=== PATIENT | male | born 1940 | race Caucasian/White ===

== ENCOUNTER 2016-11-09 15:19 | Emergency (ER) | payer MEDICARE, MEDICAID ==
[2014-09-24 12:51] VITALS: BMI 24.4
[~2016-11-09 15:19] MED LIST: ABILIFY2 MG PO; AUGMENTIN 875-11 TAB PO; CARDIZEM CD240 MG PO; DITROPAN X5 MG/BOTTL PO; DOXYCYCLINE HY100 M2 PO; FEXOFENADINE H180 MG PO; FORTEO PEN20 MCG; FORTEO PEN20 MCG SQ; IPRAT-ALBUT 0.5-3 ML UPD; KLONOPIN0.5 MG PO; LACTINEX C1 TAB.CHEW PO; MUCINEX600 MG PO; NEURONTIN 300300 MG; NEURONTIN 400400 MG PO; OYST-CAL-5001 TAB PO; PROTONIX40 MG PO; PULMICORT0.25 MG/1 INH; SENOKOT-S TABLE1 TAB PO; STERAPRED DS 1010 MG PO; SYNTHROID125 MCG PO; TRAZODONE HCL50 MG PO; ULTRACET TABLET1 TAB PO; VENTOLIN HFA18 GM; VENTOLIN HFA18 GM INH; WELLBUTRIN100 MG PO; ZOLOFT100 MG; ZOLOFT100 MG PO
== END 2016-11-09 21:16 | disposition home or self-care (01) ==
LOC: D.ER 15:19
DX: T67.5XXA Heat exhaustion, unspecified, initial encounter (principal); X58.XXXA Exposure to other specified factors, initial encounter; Y93.89 Activity, other specified; Y92.89 Other specified places as the place of occurrence of the external cause; J44.9 Chronic obstructive pulmonary disease, unspecified; R00.0 Tachycardia, unspecified

== ENCOUNTER 2017-05-29 09:41 | Inpatient (IN) | payer MEDICARE ==
[~2017-05-29] VITALS: Ht 182.9 cm; Wt 98.3 kg
[2017-05-29 10:29] LABS: BASOPHILS 0.2 % (0-2); EOSINOPHILS 2.9 % (0-7); HEMATOCRIT 45.5 % (42.0-54.0); HEMOGLOBIN 13.5 g/dL (13.5-17.5); IMMATURE GRANULOCYTES 0.4 % (0-5); LYMPHOCYTES 17.6 % (15-50); MCH 29.2 pg (26.0-34.0); MCHC 29.7 g/dL (31.0-37.0); MCV 98.5 fL (80.0-100.0); MEAN PLATELET VOLUME 11.2 fL (7.4-10.4); MONOCYTES 11.7 % (2-11); NEUTROPHILS 67.2 % (40-80); RBC 4.62 10x6/uL (4.20-6.10); WBC 5.6 10x3/uL (4.8-10.8)
[2017-05-29 10:44] LABS: PLATELET COUNT 125 10x3/uL (130-400)
[2017-05-29 11:00] LABS: ALBUMIN 3.3 g/dL (3.4-5.0); ANION GAP 6.7 mmol/L (8-16); BILIRUBIN - TOTAL 0.4 mg/dL (0.2-1.3); CALCIUM 8.9 mg/dL (8.5-10.1); CARBON DIOXIDE 36.6 mmol/L (21.0-32.0); CREATININE - SERUM 1.5 mg/dL (0.6-1.3); POTASSIUM - SERUM 4.3 mmol/L (3.5-5.1); PROTEIN - SERUM 7.4 g/dL (6.4-8.2)
[2017-05-29 11:08] LABS: TROPONIN-I 0.027 ng/mL (0.000-0.060)
[2017-05-29 11:28] LABS: APPEARANCE HAZY (CLEAR); BACTERIA FEW /hpf (NONE SEEN); BILIRUBIN NEGATIVE (NEGATIVE); COLOR YELLOW (YELLOW); EPITHELIAL CELLS 0-5 /hpf (0-5); GLUCOSE NEGATIVE (NEGATIVE); HYALINE CAST RARE /lpf (NONE SEEN); KETONE NEGATIVE (NEGATIVE); MUCUS <1+ /lpf (NONE SEEN); NITRITE NEGATIVE (NEGATIVE); PROTEIN 1+ mg/dL (NEGATIVE); RED CELLS - URINE OCC /hpf (0-5); UROBILINOGEN NORMAL (NORMAL); WHITE CELLS - URINE RARE /hpf (0-5)
[2017-05-29 16:56] VITALS: BP 111/91; BMI 30.4
[2017-05-29] MEDS ORDERED: CLARITIN 10 MG10 MG PO (17:24)
[2017-05-29] MEDS ORDERED: LINZESS145 MCG PO (17:25)
[2017-05-29] MEDS ORDERED: NEURONTIN600 MG PO (17:25)
[2017-05-29] MEDS ORDERED: NATURAL SENNA8.6 MG PO (17:26)
[2017-05-29] MEDS ORDERED: OXYBUTYNIN15 MG/BOTT PO (17:27)
[2017-05-29 21:01] VITALS: BP 145/93
[2017-05-30 06:07] LABS: BASOPHILS 0 % (0-2); EOSINOPHILS 0 % (0-7); HEMATOCRIT 46.6 % (42.0-54.0); HEMOGLOBIN 14.1 g/dL (13.5-17.5); IMMATURE GRANULOCYTES 0.2 % (0-5); LYMPHOCYTES 9.4 % (15-50); MCH 29.5 pg (26.0-34.0); MCHC 30.3 g/dL (31.0-37.0); MCV 97.5 fL (80.0-100.0); MEAN PLATELET VOLUME 11.8 fL (7.4-10.4); MONOCYTES 0.7 % (2-11); NEUTROPHILS 89.7 % (40-80); PLATELET COUNT 131 10x3/uL (130-400); RBC 4.78 10x6/uL (4.20-6.10); WBC 4.5 10x3/uL (4.8-10.8)
[2017-05-30 06:22] VITALS: BP 133/70
[2017-05-30 06:37] LABS: ALBUMIN 3.2 g/dL (3.4-5.0); BILIRUBIN - TOTAL 0.5 mg/dL (0.2-1.3); CALCIUM 8.7 mg/dL (8.5-10.1); CARBON DIOXIDE 34.4 mmol/L (21.0-32.0); POTASSIUM - SERUM 4.4 mmol/L (3.5-5.1); PROTEIN - SERUM 7.5 g/dL (6.4-8.2); THYROID STIMULATING HORMONE 0.45 uIU/mL (0.36-3.74)
[2017-05-30 06:38] LABS: CREATININE - SERUM 1.9 mg/dL (0.6-1.3)
[2017-05-30 08:51] VITALS: BP 165/45
[2017-05-30 10:07] VITALS: Ht 182.9 cm; Wt 98.3 kg
[2017-05-30 11:40] VITALS: BP 163/94
[2017-05-30 16:48] VITALS: BP 158/92
[2017-05-30 22:13] VITALS: BP 147/82
[2017-05-31 01:26] VITALS: BP 149/86
[2017-05-31 05:00] VITALS: BP 149/80
[2017-05-31 06:10] LABS: ANION GAP 10.8 mmol/L (8-16); CALCIUM 8.8 mg/dL (8.5-10.1); CARBON DIOXIDE 33.2 mmol/L (21.0-32.0)
[2017-05-31 08:38] VITALS: BP 163/90
[2017-05-31] MEDS ORDERED: Levaquin PO (10:56)
[2017-05-31] MEDS ORDERED: BROVANA15 MCG/2 M INH (10:57)
[2017-05-31] MEDS ORDERED: PULMICORT0.5 MG/21 UPD (10:58)
[2017-05-31] MEDS ORDERED: MUCINEX600 MG PO (10:58)
[2017-05-31] MEDS ORDERED: FLORAJEN3 CAPS460 MG PO (10:59)
[2017-05-31] MEDS ORDERED: DULCOLAX5 MG PO (10:59)
[2017-05-31] MEDS ORDERED: PREDNISONE20 MG PO (10:59)
[2017-05-31] MEDS ORDERED: PROTONIX40 MG PO (11:00)
[2017-05-31] MEDS ORDERED: SYNTHROID125 MCG PO (11:00)
[2017-05-31 11:40] VITALS: BP 135/78
== END 2017-05-31 12:41 | DRG 871 ==
LOC: D.ER 09:41 → D.EDHOLD 11:25 → D.M2 11:25
PROVIDERS: Emergency Medicine; Family Medicine
PROC: 0T9B70Z Drainage of Bladder with Drainage Device, Via Natural or Artificial Opening (ICD-10-PCS; principal; 2017-05-29)
DX: A41.9 Sepsis, unspecified organism (principal); J18.9 Pneumonia, unspecified organism; J96.22 Acute and chronic respiratory failure with hypercapnia; J96.21 Acute and chronic respiratory failure with hypoxia; J44.0 Chronic obstructive pulmonary disease with (acute) lower respiratory infection; F02.81 Dementia in other diseases classified elsewhere, unspecified severity, with behavioral disturbance; E11.22 Type 2 diabetes mellitus with diabetic chronic kidney disease; I12.9 Hypertensive chronic kidney disease with stage 1 through stage 4 chronic kidney disease, or unspecified chronic kidney disease; N18.9 Chronic kidney disease, unspecified; E11.40 Type 2 diabetes mellitus with diabetic neuropathy, unspecified; E03.9 Hypothyroidism, unspecified; K21.9 Gastro-esophageal reflux disease without esophagitis; F32.9 Major depressive disorder, single episode, unspecified; F41.9 Anxiety disorder, unspecified; G30.9 Alzheimer's disease, unspecified; G80.9 Cerebral palsy, unspecified; I48.0 Paroxysmal atrial fibrillation; N32.81 Overactive bladder; H54.61 Unqualified visual loss, right eye, normal vision left eye; Z87.891 Personal history of nicotine dependence

== ENCOUNTER 2017-06-08 11:44 | Inpatient (IN) | payer MEDICARE, MEDICAID ==
[~2017-06-08] VITALS: Ht 182.9 cm; Wt 102.3 kg
[~2017-06-08 11:44] MED LIST changes: +BROVANA15 MCG/2 M INH; +CLARITIN 10 MG10 MG PO; +DULCOLAX5 MG PO; +FLORAJEN3 CAPS460 MG PO; +LINZESS145 MCG PO; +Levaquin PO; +NATURAL SENNA8.6 MG PO; +NEURONTIN600 MG PO; +OXYBUTYNIN15 MG/BOTT PO; +PREDNISONE20 MG PO; +PULMICORT0.5 MG/21 UPD
[2017-06-08 12:23] LABS: BASOPHILS 0 % (0-2); EOSINOPHILS 2.2 % (0-7); HEMATOCRIT 46.8 % (42.0-54.0); HEMOGLOBIN 13.6 g/dL (13.5-17.5); IMMATURE GRANULOCYTES 1.2 % (0-5); LYMPHOCYTES 14.4 % (15-50); MCH 29.1 pg (26.0-34.0); MCHC 29.1 g/dL (31.0-37.0); MCV 100.2 fL (80.0-100.0); MEAN PLATELET VOLUME 10.8 fL (7.4-10.4); MONOCYTES 10.8 % (2-11); NEUTROPHILS 71.4 % (40-80); PLATELET COUNT 129 10x3/uL (130-400); RBC 4.67 10x6/uL (4.20-6.10); RDW 14.6 % (11.5-14.5); WBC 8.5 10x3/uL (4.8-10.8)
[2017-06-08 12:36] LABS: ALBUMIN 2.9 g/dL (3.4-5.0); ANION GAP 6.1 mmol/L (8-16); BILIRUBIN - TOTAL 0.42 mg/dL (0.2-1.3); CALCIUM 8.5 mg/dL (8.5-10.1); CARBON DIOXIDE 37.3 mmol/L (21.0-32.0); CREATININE - SERUM 1.8 mg/dL (0.6-1.3); POTASSIUM - SERUM 4.4 mmol/L (3.5-5.1); PROTEIN - SERUM 6.6 g/dL (6.4-8.2)
[2017-06-08 12:45] LABS: TROPONIN-I 0.034 ng/mL (0.000-0.060)
[2017-06-08 19:31] VITALS: BP 127/72; Ht 182.9 cm; Wt 102.3 kg
[2017-06-08 20:00] VITALS: BP 134/88
[2017-06-09] VITALS: BP 126/62
[2017-06-09 04:00] VITALS: BP 132/86
[2017-06-09 07:00] LABS: BASOPHILS 0 % (0-2); EOSINOPHILS 0.1 % (0-7); HEMATOCRIT 47.2 % (42.0-54.0); HEMOGLOBIN 13.8 g/dL (13.5-17.5); LYMPHOCYTES 5.3 % (15-50); MCH 28.9 pg (26.0-34.0); MCHC 29.2 g/dL (31.0-37.0); MEAN PLATELET VOLUME 11.4 fL (7.4-10.4); NEUTROPHILS 91.6 % (40-80); PLATELET COUNT 125 10x3/uL (130-400); RBC 4.77 10x6/uL (4.20-6.10); RDW 14.3 % (11.5-14.5); WBC 6.8 10x3/uL (4.8-10.8)
[2017-06-09 07:37] LABS: ALBUMIN 2.8 g/dL (3.4-5.0); ANION GAP 10.6 mmol/L (8-16); BILIRUBIN - TOTAL 0.44 mg/dL (0.2-1.3); CALCIUM 8.4 mg/dL (8.5-10.1); CARBON DIOXIDE 35.3 mmol/L (21.0-32.0); CREATININE - SERUM 1.8 mg/dL (0.6-1.3); POTASSIUM - SERUM 4.9 mmol/L (3.5-5.1); PROTEIN - SERUM 6.8 g/dL (6.4-8.2); THYROID STIMULATING HORMONE 0.8 uIU/mL (0.36-3.74)
[2017-06-09 09:18] VITALS: BP 146/80
[2017-06-09 12:09] VITALS: BP 124/63
[2017-06-09 16:09] VITALS: BP 124/67
[2017-06-09 20:54] VITALS: BP 125/64
[2017-06-10 00:26] VITALS: BP 157/87
[2017-06-10 05:57] LABS: BASOPHILS 0 % (0-2); EOSINOPHILS 0 % (0-7); HEMATOCRIT 42.1 % (42.0-54.0); HEMOGLOBIN 12.8 g/dL (13.5-17.5); IMMATURE GRANULOCYTES 0.6 % (0-5); LYMPHOCYTES 3.7 % (15-50); MCH 29.6 pg (26.0-34.0); MCHC 30.4 g/dL (31.0-37.0); MCV 97.2 fL (80.0-100.0); MEAN PLATELET VOLUME 10.8 fL (7.4-10.4); NEUTROPHILS 93.7 % (40-80); PLATELET COUNT 133 10x3/uL (130-400); RBC 4.33 10x6/uL (4.20-6.10); RDW 14.1 % (11.5-14.5)
[2017-06-10 05:58] LABS: WBC 9.1 10x3/uL (4.8-10.8)
[2017-06-10 06:03] VITALS: BP 142/79
[2017-06-10 06:27] LABS: ANION GAP 6.5 mmol/L (8-16); CARBON DIOXIDE 37.7 mmol/L (21.0-32.0); CREATININE - SERUM 1.9 mg/dL (0.6-1.3); MAGNESIUM - SERUM 2.1 mg/dL (1.8-2.4); PHOSPHOROUS 3.3 mg/dL (2.5-4.9); POTASSIUM - SERUM 4.2 mmol/L (3.5-5.1)
[2017-06-10 08:21] VITALS: BP 141/79
[2017-06-10 12:09] VITALS: BP 130/73
[2017-06-10 15:32] VITALS: BP 119/62
[2017-06-10 19:52] VITALS: BP 155/71
[2017-06-11 00:01] VITALS: BP 146/84
[2017-06-11 04:17] VITALS: BP 141/84
[2017-06-11 07:15] LABS: BASOPHILS 0 % (0-2); EOSINOPHILS 0 % (0-7); HEMATOCRIT 42.4 % (42.0-54.0); HEMOGLOBIN 12.5 g/dL (13.5-17.5); IMMATURE GRANULOCYTES 0.6 % (0-5); LYMPHOCYTES 3.3 % (15-50); MCH 28.9 pg (26.0-34.0); MCHC 29.5 g/dL (31.0-37.0); MCV 97.9 fL (80.0-100.0); MEAN PLATELET VOLUME 11.4 fL (7.4-10.4); MONOCYTES 2.6 % (2-11); NEUTROPHILS 93.5 % (40-80); PLATELET COUNT 140 10x3/uL (130-400); RBC 4.33 10x6/uL (4.20-6.10); RDW 14.5 % (11.5-14.5); WBC 10.1 10x3/uL (4.8-10.8)
[2017-06-11 07:57] LABS: ALBUMIN 2.6 g/dL (3.4-5.0); ANION GAP 10.3 mmol/L (8-16); BILIRUBIN - TOTAL 0.24 mg/dL (0.2-1.3); CALCIUM 8.5 mg/dL (8.5-10.1); CARBON DIOXIDE 35.8 mmol/L (21.0-32.0); CREATININE - SERUM 1.9 mg/dL (0.6-1.3); POTASSIUM - SERUM 4.1 mmol/L (3.5-5.1); PROTEIN - SERUM 6.1 g/dL (6.4-8.2)
[2017-06-11 10:38] VITALS: BP 147/76
[2017-06-11 15:04] VITALS: BP 126/73
[2017-06-11 19:08] VITALS: BP 130/68
[2017-06-11 20:24] VITALS: BP 130/75
[2017-06-12 00:16] VITALS: BP 127/74
[2017-06-12 05:05] VITALS: BP 141/77
[2017-06-12 08:15] VITALS: BP 1571/86
[2017-06-12 12:26] VITALS: BP 151/79
[2017-06-12 16:25] VITALS: BP 133/70
[2017-06-12 20:00] VITALS: BP 136/62; BP 141/77
[2017-06-13] VITALS (8 sets, daily range): BP systolic 114–176; BP diastolic 62–88
[2017-06-13 06:54] LABS: APTT 24.4 SECONDS (22.8-39.4); INR 0.95 (0.85-1.17); PROTIME 12.3 SECONDS (11.6-15.0)
[2017-06-13 06:59] LABS: ANION GAP 7.4 mmol/L (8-16); CALCIUM 8.4 mg/dL (8.5-10.1); CARBON DIOXIDE 37.8 mmol/L (21.0-32.0); CREATININE - SERUM 1.7 mg/dL (0.6-1.3)
[2017-06-13 07:00] LABS: POTASSIUM - SERUM 5.2 mmol/L (3.5-5.1)
[2017-06-13 07:35] LABS: BASOPHILS 0.1 % (0-2); EOSINOPHILS 0 % (0-7); HEMATOCRIT 44.6 % (42.0-54.0); HEMOGLOBIN 13.3 g/dL (13.5-17.5); LYMPHOCYTES 2.5 % (15-50); MCH 29.4 pg (26.0-34.0); MCHC 29.8 g/dL (31.0-37.0); MCV 98.5 fL (80.0-100.0); MEAN PLATELET VOLUME 11.3 fL (7.4-10.4); NEUTROPHILS 93.4 % (40-80); PLATELET COUNT 121 10x3/uL (130-400); RBC 4.53 10x6/uL (4.20-6.10); RDW 14.5 % (11.5-14.5); WBC 9.4 10x3/uL (4.8-10.8)
[2017-06-14] VITALS (7 sets, daily range): BP systolic 101–156; BP diastolic 69–83
[2017-06-14 12:17] LABS: FUNGUS STAIN Final report (())
[2017-06-14 19:12] LABS: ACID FAST SMEAR Negative (()); AFB SPECIMEN PROCESSING Concentration (())
[2017-06-15 03:11] LABS: IMMUNOGLOBULIN E 56 IU/mL (0-100)
[2017-06-15 04:29] VITALS: BP 138/65
[2017-06-15 07:53] LABS: BASOPHILS 0 % (0-2); EOSINOPHILS 0 % (0-7); HEMOGLOBIN 12.9 g/dL (13.5-17.5); LYMPHOCYTES 5.6 % (15-50); MCH 29.1 pg (26.0-34.0); MCHC 29.3 g/dL (31.0-37.0); MCV 99.3 fL (80.0-100.0); MEAN PLATELET VOLUME 10.3 fL (7.4-10.4); MONOCYTES 4.4 % (2-11); PLATELET COUNT 109 10x3/uL (130-400); RBC 4.43 10x6/uL (4.20-6.10); RDW 14.5 % (11.5-14.5); WBC 8.9 10x3/uL (4.8-10.8)
[2017-06-15 08:04] LABS: ANION GAP 5.2 mmol/L (8-16); CALCIUM 7.6 mg/dL (8.5-10.1); CARBON DIOXIDE 36.3 mmol/L (21.0-32.0); CREATININE - SERUM 1.7 mg/dL (0.6-1.3); POTASSIUM - SERUM 3.5 mmol/L (3.5-5.1)
[2017-06-15 08:40] VITALS: BP 130/67
[2017-06-15 12:36] VITALS: BP 151/89
[2017-06-15 16:56] VITALS: BP 132/63
[2017-06-15 20:27] VITALS: BP 122/69
[2017-06-16 00:22] VITALS: BP 127/70
[2017-06-16 08:36] VITALS: BP 138/90
[2017-06-16] MEDS ORDERED: VIBRAMYCIN 100100 MG PO (10:08)
[2017-06-16] MEDS ORDERED: DIFLUCAN100 MG PO (10:09)
[2017-06-16] MEDS ORDERED: ALBUTEROL2.5 MG/3 M UPD (10:13)
[2017-06-16] MEDS ORDERED: NYSTATIN ORAL SU5 ML PO (10:13)
[2017-06-16] MEDS ORDERED: SYNTHROID25 MCG PO (10:15)
[2017-06-16] MEDS ORDERED: SINGULAIR10 MG PO (10:15)
[2017-06-16] MEDS ORDERED: STERAPRED DS 1210 MG PO (10:17)
[2017-06-16] MEDS ORDERED: CLOTRIM ANTIFUN15 GM TOPICAL (10:17)
[2017-06-16 12:04] VITALS: BP 144/73
[2017-06-19 16:58] LABS: FUNGUS CULTURE RESULT 1 Candida albicans (())
[2017-07-11 09:46] LABS: FUNGUS MYCOLOGY CULTURE Final report (())
== END 2017-06-16 19:30 | DRG 871 ==
LOC: D.ER 11:44 → D.EDHOLD 13:16 → D.MS 13:16
PROVIDERS: Emergency Medicine; Family Medicine; Internal Medicine Pulmonary Disease
PROC: 0B948ZZ Drainage of Right Upper Lobe Bronchus, Via Natural or Artificial Opening Endoscopic (ICD-10-PCS; 2017-06-13)
PROC: 0B988ZZ Drainage of Left Upper Lobe Bronchus, Via Natural or Artificial Opening Endoscopic (ICD-10-PCS; 2017-06-13)
PROC: 0B918ZZ Drainage of Trachea, Via Natural or Artificial Opening Endoscopic (ICD-10-PCS; 2017-06-13)
PROC: 0B958ZZ Drainage of Right Middle Lobe Bronchus, Via Natural or Artificial Opening Endoscopic (ICD-10-PCS; 2017-06-13)
PROC: 0B938ZZ Drainage of Right Main Bronchus, Via Natural or Artificial Opening Endoscopic (ICD-10-PCS; 2017-06-13)
PROC: 0B978ZZ Drainage of Left Main Bronchus, Via Natural or Artificial Opening Endoscopic (ICD-10-PCS; 2017-06-13)
PROC: 0B968ZZ Drainage of Right Lower Lobe Bronchus, Via Natural or Artificial Opening Endoscopic (ICD-10-PCS; 2017-06-13)
PROC: 0B9B8ZZ Drainage of Left Lower Lobe Bronchus, Via Natural or Artificial Opening Endoscopic (ICD-10-PCS; 2017-06-13)
PROC: 0B998ZZ Drainage of Lingula Bronchus, Via Natural or Artificial Opening Endoscopic (ICD-10-PCS; 2017-06-13)
PROC: 0B928ZZ Drainage of Carina, Via Natural or Artificial Opening Endoscopic (ICD-10-PCS; principal; 2017-06-13 10:30)
DX: A41.9 Sepsis, unspecified organism (principal); J18.9 Pneumonia, unspecified organism; J96.21 Acute and chronic respiratory failure with hypoxia; J96.22 Acute and chronic respiratory failure with hypercapnia; J44.0 Chronic obstructive pulmonary disease with (acute) lower respiratory infection; J44.1 Chronic obstructive pulmonary disease with (acute) exacerbation; F02.81 Dementia in other diseases classified elsewhere, unspecified severity, with behavioral disturbance; N17.9 Acute kidney failure, unspecified; J98.11 Atelectasis; I10 Essential (primary) hypertension; G30.9 Alzheimer's disease, unspecified; G80.9 Cerebral palsy, unspecified; I48.0 Paroxysmal atrial fibrillation; D69.6 Thrombocytopenia, unspecified; H54.61 Unqualified visual loss, right eye, normal vision left eye; R13.10 Dysphagia, unspecified; N32.81 Overactive bladder; F41.8 Other specified anxiety disorders; K59.00 Constipation, unspecified

== ENCOUNTER 2017-08-20 11:47 | Inpatient (IN) | payer MEDICARE, MEDICAID ==
[2017-08-20] VITALS (10 sets, daily range): BP systolic 82–141; BP diastolic 41–89; BMI 27.0
[~2017-08-20] VITALS: Ht 190.5 cm; Wt 109.7 kg
[~2017-08-20 11:47] MED LIST changes: +ALBUTEROL2.5 MG/3 M UPD; +CLOTRIM ANTIFUN15 GM TOPICAL; +DIFLUCAN100 MG PO; +NYSTATIN ORAL SU5 ML PO; +SINGULAIR10 MG PO; +STERAPRED DS 1210 MG PO; +SYNTHROID25 MCG PO; +VIBRAMYCIN 100100 MG PO
[2017-08-20] MEDS ORDERED: LYRICA100 MG PO (12:15)
[2017-08-20] MEDS ORDERED: ZOLOFT50 MG PO (12:15)
[2017-08-20] MEDS ORDERED: ULTRACET TABLET1 TAB PO (12:16)
[2017-08-20 13:29] LABS: BASOPHILS 0.3 % (0-2); EOSINOPHILS 0.5 % (0-7); LYMPHOCYTES 10.4 % (15-50); MCH 31.1 pg (26.0-34.0); MCHC 29.3 g/dL (31.0-37.0); MCV 106.2 fL (80.0-100.0); MEAN PLATELET VOLUME 11.1 fL (7.4-10.4); MONOCYTES 10.8 % (2-11); PLATELET COUNT 99 10x3/uL (130-400); RBC 3.86 10x6/uL (4.20-6.10); RDW 16.2 % (11.5-14.5); WBC 7.6 10x3/uL (4.8-10.8)
[2017-08-20 13:46] LABS: PLATELET ESTIMATE DECREASED
[2017-08-20 14:27] LABS: BILIRUBIN - TOTAL 0.36 mg/dL (0.2-1.3); CALCIUM 8.7 mg/dL (8.5-10.1); CREATININE - SERUM 1.5 mg/dL (0.6-1.3); POTASSIUM - SERUM 4.5 mmol/L (3.5-5.1); PROTEIN - SERUM 5.8 g/dL (6.4-8.2); THYROID STIMULATING HORMONE 3.86 uIU/mL (0.36-3.74)
[2017-08-20 14:28] LABS: ANION GAP 7.5 mmol/L (8-16)
[2017-08-20 15:12] LABS: TROPONIN-I 1.569 ng/mL (0.000-0.060)
[2017-08-20 20:32] LABS: APPEARANCE CLEAR (CLEAR); BILIRUBIN NEGATIVE (NEGATIVE); COLOR STRAW (YELLOW); GLUCOSE NEGATIVE (NEGATIVE); KETONE NEGATIVE (NEGATIVE); NITRITE NEGATIVE (NEGATIVE); PROTEIN NEGATIVE (NEGATIVE); UROBILINOGEN NORMAL (NORMAL)
[2017-08-21] VITALS (60 sets, daily range): BP systolic 74–168; BP diastolic 41–99; BMI 27.1
[2017-08-21 04:23] LABS: BASOPHILS 0.1 % (0-2); EOSINOPHILS 0.7 % (0-7); HEMATOCRIT 42.4 % (42.0-54.0); HEMOGLOBIN 12.5 g/dL (13.5-17.5); IMMATURE GRANULOCYTES 0.6 % (0-5); LYMPHOCYTES 12.2 % (15-50); MCH 30.9 pg (26.0-34.0); MCHC 29.5 g/dL (31.0-37.0); MEAN PLATELET VOLUME 11.8 fL (7.4-10.4); MONOCYTES 9.9 % (2-11); NEUTROPHILS 76.5 % (40-80); PLATELET COUNT 125 10x3/uL (130-400); RBC 4.04 10x6/uL (4.20-6.10); RDW 16.5 % (11.5-14.5); WBC 10.6 10x3/uL (4.8-10.8)
[2017-08-21 04:33] LABS: ANION GAP 9.4 mmol/L (8-16); CALCIUM 8.9 mg/dL (8.5-10.1); CARBON DIOXIDE 38.7 mmol/L (21.0-32.0); MAGNESIUM - SERUM 1.8 mg/dL (1.8-2.4); POTASSIUM - SERUM 4.1 mmol/L (3.5-5.1)
[2017-08-21 04:40] LABS: CREATININE - SERUM 2.1 mg/dL (0.6-1.3); PHOSPHOROUS 1.3 mg/dL (2.5-4.9)
[2017-08-22] VITALS (43 sets, daily range): BP systolic 79–161; BP diastolic 41–118
[2017-08-22 03:25] LABS: BASOPHILS 0.2 % (0-2); EOSINOPHILS 1.5 % (0-7); HEMATOCRIT 39.2 % (42.0-54.0); HEMOGLOBIN 11.7 g/dL (13.5-17.5); IMMATURE GRANULOCYTES 0.3 % (0-5); LYMPHOCYTES 12.1 % (15-50); MCH 30.6 pg (26.0-34.0); MCHC 29.8 g/dL (31.0-37.0); MEAN PLATELET VOLUME 11.7 fL (7.4-10.4); MONOCYTES 8.9 % (2-11); RBC 3.82 10x6/uL (4.20-6.10); RDW 17.1 % (11.5-14.5)
[2017-08-22 03:35] LABS: MCV 102.6 fL (80.0-100.0); PLATELET COUNT 88 10x3/uL (130-400)
[2017-08-22 03:51] LABS: ALBUMIN 2.3 g/dL (3.4-5.0); ANION GAP 7.8 mmol/L (8-16); BILIRUBIN - TOTAL 0.7 mg/dL (0.2-1.3); CALCIUM 8.4 mg/dL (8.5-10.1); CARBON DIOXIDE 36.9 mmol/L (21.0-32.0); CREATININE - SERUM 2.1 mg/dL (0.6-1.3); PHOSPHOROUS 3.6 mg/dL (2.5-4.9); POTASSIUM - SERUM 3.7 mmol/L (3.5-5.1); PROTEIN - SERUM 5.4 g/dL (6.4-8.2); TROPONIN-I 7.773 ng/mL (0.000-0.060); VANCOMYCIN - RANDOM 11.2 ug/mL (10.0-20.0)
[2017-08-23] VITALS (25 sets, daily range): BP systolic 90–150; BP diastolic 51–100
[2017-08-23 04:21] LABS: BASOPHILS 0.1 % (0-2); EOSINOPHILS 2.2 % (0-7); HEMATOCRIT 36.2 % (42.0-54.0); HEMOGLOBIN 10.9 g/dL (13.5-17.5); IMMATURE GRANULOCYTES 0.4 % (0-5); LYMPHOCYTES 17.8 % (15-50); MCH 30.6 pg (26.0-34.0); MCHC 30.1 g/dL (31.0-37.0); MCV 101.7 fL (80.0-100.0); MEAN PLATELET VOLUME 11.7 fL (7.4-10.4); MONOCYTES 9.2 % (2-11); NEUTROPHILS 70.3 % (40-80); PLATELET COUNT 89 10x3/uL (130-400); RBC 3.56 10x6/uL (4.20-6.10); RDW 17.5 % (11.5-14.5); WBC 7.4 10x3/uL (4.8-10.8)
[2017-08-23 04:58] LABS: ANION GAP 8.4 mmol/L (8-16); BILIRUBIN - TOTAL 0.66 mg/dL (0.2-1.3); CALCIUM 7.8 mg/dL (8.5-10.1); CARBON DIOXIDE 32.1 mmol/L (21.0-32.0); CREATININE - SERUM 2.1 mg/dL (0.6-1.3); MAGNESIUM - SERUM 1.8 mg/dL (1.8-2.4); PHOSPHOROUS 3.1 mg/dL (2.5-4.9); POTASSIUM - SERUM 3.5 mmol/L (3.5-5.1); PROTEIN - SERUM 4.9 g/dL (6.4-8.2)
[2017-08-23 05:02] LABS: TROPONIN-I 3.818 ng/mL (0.000-0.060)
[2017-08-24] VITALS (25 sets, daily range): BP systolic 84–129; BP diastolic 47–79
[2017-08-24 05:35] LABS: BASOPHILS 0 % (0-2); HEMATOCRIT 36.5 % (42.0-54.0); HEMOGLOBIN 11.1 g/dL (13.5-17.5); IMMATURE GRANULOCYTES 0.4 % (0-5); LYMPHOCYTES 10.8 % (15-50); MCH 30.7 pg (26.0-34.0); MCHC 30.4 g/dL (31.0-37.0); MCV 100.8 fL (80.0-100.0); MEAN PLATELET VOLUME 11.6 fL (7.4-10.4); MONOCYTES 6.2 % (2-11); NEUTROPHILS 79.6 % (40-80); PLATELET COUNT 89 10x3/uL (130-400); RBC 3.62 10x6/uL (4.20-6.10); RDW 17.7 % (11.5-14.5)
[2017-08-24 05:49] LABS: WBC 5.3 10x3/uL (4.8-10.8)
[2017-08-24 05:50] LABS: CALCIUM 7.7 mg/dL (8.5-10.1); CARBON DIOXIDE 32.5 mmol/L (21.0-32.0); CREATININE - SERUM 1.8 mg/dL (0.6-1.3); PHOSPHOROUS 3.5 mg/dL (2.5-4.9); POTASSIUM - SERUM 3.5 mmol/L (3.5-5.1)
[2017-08-24 18:07] LABS: AFB SPECIMEN PROCESSING Concentration (())
[2017-08-25] VITALS (25 sets, daily range): BP systolic 80–116; BP diastolic 46–70
[2017-08-25 05:11] LABS: BASOPHILS 0.2 % (0-2); EOSINOPHILS 2.6 % (0-7); HEMATOCRIT 35.2 % (42.0-54.0); HEMOGLOBIN 10.7 g/dL (13.5-17.5); IMMATURE GRANULOCYTES 0.5 % (0-5); LYMPHOCYTES 8.5 % (15-50); MCH 30.9 pg (26.0-34.0); MCHC 30.4 g/dL (31.0-37.0); MCV 101.7 fL (80.0-100.0); MEAN PLATELET VOLUME 11.7 fL (7.4-10.4); MONOCYTES 6.8 % (2-11); NEUTROPHILS 81.4 % (40-80); PLATELET COUNT 92 10x3/uL (130-400); RBC 3.46 10x6/uL (4.20-6.10); RDW 17.9 % (11.5-14.5); WBC 5.7 10x3/uL (4.8-10.8)
[2017-08-25 05:25] LABS: ANION GAP 5.6 mmol/L (8-16); CALCIUM 7.7 mg/dL (8.5-10.1); CARBON DIOXIDE 33.3 mmol/L (21.0-32.0); CREATININE - SERUM 1.8 mg/dL (0.6-1.3); PHOSPHOROUS 3.3 mg/dL (2.5-4.9); POTASSIUM - SERUM 3.9 mmol/L (3.5-5.1)
[2017-08-25 22:14] LABS: APPEARANCE CLEAR (CLEAR); BILIRUBIN NEGATIVE (NEGATIVE); COLOR DK YELLOW (YELLOW); GLUCOSE NEGATIVE (NEGATIVE); KETONE NEGATIVE (NEGATIVE); NITRITE NEGATIVE (NEGATIVE); PROTEIN NEGATIVE (NEGATIVE); UROBILINOGEN NORMAL (NORMAL)
[2017-08-25 22:17] LABS: AMORPHOUS SEDIMENT <1+ /lpf (NONE SEEN); BACTERIA FEW /hpf (NONE SEEN); EPITHELIAL CELLS 0-5 /hpf (0-5)
[2017-08-26] VITALS (24 sets, daily range): BP systolic 84–123; BP diastolic 49–67; Ht 190.5 cm; Wt 109.7 kg
[2017-08-26 04:44] LABS: BASOPHILS 0.1 % (0-2); EOSINOPHILS 2.6 % (0-7); HEMATOCRIT 35.9 % (42.0-54.0); HEMOGLOBIN 10.8 g/dL (13.5-17.5); IMMATURE GRANULOCYTES 0.6 % (0-5); LYMPHOCYTES 10.2 % (15-50); MCH 30.6 pg (26.0-34.0); MCHC 30.1 g/dL (31.0-37.0); MCV 101.7 fL (80.0-100.0); MEAN PLATELET VOLUME 12.3 fL (7.4-10.4); MONOCYTES 5.2 % (2-11); NEUTROPHILS 81.3 % (40-80); PLATELET COUNT 97 10x3/uL (130-400); RBC 3.53 10x6/uL (4.20-6.10); RDW 17.8 % (11.5-14.5)
[2017-08-26 05:21] LABS: ALBUMIN 1.7 g/dL (3.4-5.0); BILIRUBIN - TOTAL 0.39 mg/dL (0.2-1.3); CALCIUM 7.4 mg/dL (8.5-10.1); CARBON DIOXIDE 31.2 mmol/L (21.0-32.0); CREATININE - SERUM 1.7 mg/dL (0.6-1.3); POTASSIUM - SERUM 4.2 mmol/L (3.5-5.1); PROTEIN - SERUM 5.1 g/dL (6.4-8.2)
[2017-08-26 05:22] LABS: PHOSPHOROUS 4.6 mg/dL (2.5-4.9)
[2017-08-26 09:08] LABS: FUNGUS STAIN Final report (())
[2017-08-27] VITALS (50 sets, daily range): BP systolic 80–137; BP diastolic 47–73
[2017-08-27 05:18] LABS: BASOPHILS 0 % (0-2); EOSINOPHILS 2.6 % (0-7); HEMATOCRIT 34.9 % (42.0-54.0); HEMOGLOBIN 10.8 g/dL (13.5-17.5); IMMATURE GRANULOCYTES 0.9 % (0-5); MCH 30.9 pg (26.0-34.0); MCHC 30.9 g/dL (31.0-37.0); MEAN PLATELET VOLUME 13.1 fL (7.4-10.4); MONOCYTES 7.1 % (2-11); NEUTROPHILS 80.4 % (40-80); PLATELET COUNT 111 10x3/uL (130-400); RDW 17.7 % (11.5-14.5); WBC 6.5 10x3/uL (4.8-10.8)
[2017-08-27 05:23] LABS: MCV 99.7 fL (80.0-100.0)
[2017-08-27 05:31] LABS: ANION GAP 10.6 mmol/L (8-16); CALCIUM 7.6 mg/dL (8.5-10.1); CARBON DIOXIDE 29.9 mmol/L (21.0-32.0); PHOSPHOROUS 4.8 mg/dL (2.5-4.9); POTASSIUM - SERUM 4.5 mmol/L (3.5-5.1)
[2017-08-28] VITALS (35 sets, daily range): BP systolic 91–142; BP diastolic 50–81
[2017-08-28 05:16] LABS: BASOPHILS 0.3 % (0-2); EOSINOPHILS 0.2 % (0-7); HEMATOCRIT 33.8 % (42.0-54.0); HEMOGLOBIN 10.5 g/dL (13.5-17.5); IMMATURE GRANULOCYTES 1.5 % (0-5); LYMPHOCYTES 10.5 % (15-50); MCH 30.4 pg (26.0-34.0); MCHC 31.1 g/dL (31.0-37.0); MEAN PLATELET VOLUME 12.4 fL (7.4-10.4); MONOCYTES 6.4 % (2-11); NEUTROPHILS 81.1 % (40-80); RBC 3.45 10x6/uL (4.20-6.10); RDW 16.9 % (11.5-14.5); WBC 5.8 10x3/uL (4.8-10.8)
[2017-08-28 05:29] LABS: PLATELET COUNT 170 10x3/uL (130-400)
[2017-08-28 05:33] LABS: ALBUMIN 1.5 g/dL (3.4-5.0); BILIRUBIN - TOTAL 0.27 mg/dL (0.2-1.3); CALCIUM 7.8 mg/dL (8.5-10.1); CARBON DIOXIDE 29.2 mmol/L (21.0-32.0); CREATININE - SERUM 1.9 mg/dL (0.6-1.3); MAGNESIUM - SERUM 2.3 mg/dL (1.8-2.4); PROTEIN - SERUM 5.3 g/dL (6.4-8.2)
[2017-08-28 05:34] LABS: POTASSIUM - SERUM 5.2 mmol/L (3.5-5.1)
[2017-08-28 16:21] LABS: ANION GAP 10.6 mmol/L (8-16); CALCIUM 7.4 mg/dL (8.5-10.1); CARBON DIOXIDE 29.4 mmol/L (21.0-32.0); CREATININE - SERUM 1.9 mg/dL (0.6-1.3)
[2017-08-29] VITALS (24 sets, daily range): BP systolic 99–135; BP diastolic 52–69
[2017-08-29 04:32] LABS: BASOPHILS 0.2 % (0-2); EOSINOPHILS 1.5 % (0-7); HEMATOCRIT 31.2 % (42.0-54.0); HEMOGLOBIN 9.7 g/dL (13.5-17.5); IMMATURE GRANULOCYTES 1.3 % (0-5); LYMPHOCYTES 10.9 % (15-50); MCH 30.5 pg (26.0-34.0); MCHC 31.1 g/dL (31.0-37.0); MCV 98.1 fL (80.0-100.0); MEAN PLATELET VOLUME 12.3 fL (7.4-10.4); MONOCYTES 8.8 % (2-11); NEUTROPHILS 77.3 % (40-80); PLATELET COUNT 178 10x3/uL (130-400); RBC 3.18 10x6/uL (4.20-6.10); RDW 16.4 % (11.5-14.5); WBC 5.3 10x3/uL (4.8-10.8)
[2017-08-29 04:47] LABS: ALBUMIN 1.6 g/dL (3.4-5.0); ANION GAP 8.6 mmol/L (8-16); BILIRUBIN - TOTAL 0.19 mg/dL (0.2-1.3); CARBON DIOXIDE 31.1 mmol/L (21.0-32.0); POTASSIUM - SERUM 4.7 mmol/L (3.5-5.1); PROTEIN - SERUM 5.1 g/dL (6.4-8.2)
[2017-08-29 04:52] LABS: MAGNESIUM - SERUM 2.9 mg/dL (1.8-2.4)
[2017-08-30] VITALS (22 sets, daily range): BP systolic 86–119; BP diastolic 53–67
[2017-08-30 03:43] LABS: BASOPHILS 0.1 % (0-2); EOSINOPHILS 1.4 % (0-7); HEMATOCRIT 33.1 % (42.0-54.0); HEMOGLOBIN 10.5 g/dL (13.5-17.5); IMMATURE GRANULOCYTES 2.3 % (0-5); LYMPHOCYTES 7.7 % (15-50); MCH 31.5 pg (26.0-34.0); MCHC 31.7 g/dL (31.0-37.0); MCV 99.4 fL (80.0-100.0); MEAN PLATELET VOLUME 11.9 fL (7.4-10.4); MONOCYTES 6.6 % (2-11); NEUTROPHILS 81.9 % (40-80); PLATELET COUNT 217 10x3/uL (130-400); RBC 3.33 10x6/uL (4.20-6.10); RDW 16.5 % (11.5-14.5)
[2017-08-30 03:59] LABS: ALBUMIN 1.7 g/dL (3.4-5.0); BILIRUBIN - TOTAL 0.5 mg/dL (0.2-1.3); CALCIUM 7.4 mg/dL (8.5-10.1); CARBON DIOXIDE 29.2 mmol/L (21.0-32.0); CREATININE - SERUM 1.9 mg/dL (0.6-1.3); MAGNESIUM - SERUM 2.8 mg/dL (1.8-2.4); PROTEIN - SERUM 5.3 g/dL (6.4-8.2)
[2017-08-30 04:21] LABS: POTASSIUM - SERUM 4.2 mmol/L (3.5-5.1)
[2017-08-31 03:00] VITALS: BP 96/55
[2017-08-31 07:00] VITALS: BP 111/58
[2017-08-31 08:00] VITALS: BP 116/63
[2017-09-19 20:09] LABS: FUNGUS MYCOLOGY CULTURE Final report (())
[2017-10-17 15:25] LABS: ACID FAST CULTURE Negative (()); ACID FAST SMEAR Negative (())
== END 2017-08-31 12:30 | DRG 870 ==
LOC: D.ER 11:47 → D.EDHOLD 14:50 → D.ICU 14:50
PROVIDERS: Family Medicine; Internal Medicine Nephrology; Internal Medicine Pulmonary Disease
PROC: 5A1955Z Respiratory Ventilation, Greater than 96 Consecutive Hours (ICD-10-PCS; principal; 2017-08-20)
PROC: 0BH17EZ Insertion of Endotracheal Airway into Trachea, Via Natural or Artificial Opening (ICD-10-PCS; 2017-08-20)
PROC: 05HY33Z Insertion of Infusion Device into Upper Vein, Percutaneous Approach (ICD-10-PCS; 2017-08-22)
PROC: 0B928ZZ Drainage of Carina, Via Natural or Artificial Opening Endoscopic (ICD-10-PCS; 2017-08-22)
PROC: 0B918ZZ Drainage of Trachea, Via Natural or Artificial Opening Endoscopic (ICD-10-PCS; 2017-08-22)
PROC: 0B938ZZ Drainage of Right Main Bronchus, Via Natural or Artificial Opening Endoscopic (ICD-10-PCS; 2017-08-22)
PROC: 0B978ZZ Drainage of Left Main Bronchus, Via Natural or Artificial Opening Endoscopic (ICD-10-PCS; 2017-08-22)
PROC: 0B968ZZ Drainage of Right Lower Lobe Bronchus, Via Natural or Artificial Opening Endoscopic (ICD-10-PCS; 2017-08-22)
PROC: 0B9B8ZZ Drainage of Left Lower Lobe Bronchus, Via Natural or Artificial Opening Endoscopic (ICD-10-PCS; 2017-08-22)
DX: A41.9 Sepsis, unspecified organism (principal); J96.21 Acute and chronic respiratory failure with hypoxia; I50.21 Acute systolic (congestive) heart failure; I21.4 Non-ST elevation (NSTEMI) myocardial infarction; J15.3 Pneumonia due to streptococcus, group B; J96.22 Acute and chronic respiratory failure with hypercapnia; I13.0 Hypertensive heart and chronic kidney disease with heart failure and stage 1 through stage 4 chronic kidney disease, or unspecified chronic kidney disease; N17.9 Acute kidney failure, unspecified; J81.1 Chronic pulmonary edema; J44.1 Chronic obstructive pulmonary disease with (acute) exacerbation; N18.9 Chronic kidney disease, unspecified; Z66 Do not resuscitate; I27.20 Pulmonary hypertension, unspecified; G80.9 Cerebral palsy, unspecified; G30.9 Alzheimer's disease, unspecified; F02.80 Dementia in other diseases classified elsewhere, unspecified severity, without behavioral disturbance, psychotic disturbance, mood disturbance, and anxiety; K21.9 Gastro-esophageal reflux disease without esophagitis; E03.9 Hypothyroidism, unspecified; G62.9 Polyneuropathy, unspecified; I48.91 Unspecified atrial fibrillation; F41.8 Other specified anxiety disorders; H54.40 Blindness, one eye, unspecified eye; D69.6 Thrombocytopenia, unspecified; Z87.891 Personal history of nicotine dependence; J30.9 Allergic rhinitis, unspecified